=== PATIENT | male | born 1995 | race Caucasian/White ===

== ENCOUNTER 2020-10-01 10:33 | Emergency (ER) | payer OTHER ==
[~2020-10-01] VITALS: Ht 175.3 cm; Wt 83.9 kg
[~2020-10-01 10:33] MED LIST: AMPDEX10 PO; FLUO10 PO; ONDA4ODT MM; RANI150 PO
[2020-10-01] MEDS ORDERED: OXYC5 PO (11:16)
== END 2020-10-01 11:24 | disposition home or self-care (01) ==
LOC: ER 10:33
DX: S42.021A Displaced fracture of shaft of right clavicle, initial encounter for closed fracture (principal); Z79.899 Other long term (current) drug therapy; X58.XXXA Exposure to other specified factors, initial encounter; Y93.72 Activity, wrestling
CPT/HCPCS: 73000; 99283-25; A9270

== ENCOUNTER 2020-11-06 19:19 | Emergency (ER) | payer OTHER ==
[~2020-11-06] VITALS: Ht 175.3 cm; Wt 86.2 kg
[~2020-11-06 19:19] MED LIST changes: +OXYC5 PO
== END 2020-11-06 21:07 | disposition home or self-care (01) ==
LOC: ER 19:19
DX: K08.89 Other specified disorders of teeth and supporting structures (principal); F17.200 Nicotine dependence, unspecified, uncomplicated; Z88.6 Allergy status to analgesic agent
CPT/HCPCS: 96372; 99282; J1885